=== PATIENT | male | born 1990 | race African-American/Black ===

== ENCOUNTER 2023-08-19 15:29 | Emergency (ER) | payer OTHER ==
[~2023-08-19] VITALS: Ht 175.3 cm; Wt 88.6 kg
[2023-08-19 15:50] VITALS: TEMP 98.3
[2023-08-19 16:46] LABS: INFLUENZA A-RTPCR,COMBO NEGATIVE (NEGATIVE); INFLUENZA B-RTPCR,COMBO NEGATIVE (NEGATIVE); RESPIRATORY SYNCYTIAL VRS-PCR NEGATIVE (NEGATIVE); SARS COVID19 RTPCR, COMBO NEGATIVE (NEGATIVE)
[2023-08-19] MEDS: KETOROLAC TROMETHAMINE 30 MG/ML VIAL IVP ONE (17:05)
[2023-08-19] MEDS: SODIUM CHLORIDE 0.9% 1,000 ML IV ONE (17:05)
[2023-08-19] MEDS: DEXAMETHASONE SOD PHOS 4 MG/ML 5 ML VIAL IVP ONE (17:05)
[2023-08-19] MEDS: ACETAMINOPHEN 1000 MG/ISO-OSM 100 ML IV ONE (17:06)
[2023-08-19 17:22] LABS: BASOPHILS % (AUTO) 0.6 % (0.0-2.0); EOSINOPHILS % (AUTO) 1.4 % (1.0-6.0); HEMOGLOBIN 14.5 g/dL (13.5-17.5); LYMPHOCYTES # (AUTO) 1.6 K/uL (1.0-4.8); LYMPHOCYTES % (AUTO) 18.2 % (22.0-44.0); MEAN CORPUSCULAR HEMOGLOBIN 30.8 pg (26.0-34.0); MEAN CORPUSCULAR HGB CONC 33.7 G/dL (31.0-37.0); MEAN CORPUSCULAR VOLUME 91 fL (80-100); MONOCYTES # (AUTO) 1.4 K/uL (0.1-1.0); MONOCYTES % (AUTO) 15.9 % (2.0-9.0); NEUTROPHILS # (AUTO) 5.7 K/uL (1.8-7.7); NEUTROPHILS % (AUTO) 63.9 % (40.0-70.0); PLATELET COUNT (AUTO) 424 K/uL (150-450); RED BLOOD CELL COUNT(AUTO) 4.71 MIL/uL (4.50-5.90); RED CELL DISTRIBUTION WIDTH 13.2 % (11.5-14.5)
[2023-08-19 17:36] LABS: ANION GAP 13 mmol/L (8-16); CALCIUM, TOTAL 10.6 mg/dL (8.8-10.5); CARBON DIOXIDE 28 mmol/L (22-29); CHLORIDE 97 mmol/L (98-107); CREATININE 0.89 mg/dL (0.60-1.30); GLOMERULAR FILTR. RATE CALC > 60 mL/min (>60); GLUCOSE,RANDOM 110 mg/dL (70-110); POTASSIUM 3.4 mmol/L (3.5-5.1); SODIUM SERUM 138 mmol/L (136-145); UREA NITROGEN, BLOOD 10 mg/dL (7-18)
[2023-08-19 17:41] LABS: ALANINE AMINOTRANSFERASE 33 U/L (12-78); ALBUMIN 3.9 g/dL (3.4-5.0); ALKALINE PHOSPHATASE 69 U/L (46-116); ASPARTATE AMINOTRANSFERASE 23 U/L (15-37); BILIRUBIN,TOTAL 0.6 mg/dL (0.1-1.0); TOTAL PROTEIN, SERUM 9.5 g/dL (6.4-8.2)
[2023-08-19] MEDS ORDERED: AMOX1TAB16 PO (18:58)
[2023-08-19] MEDS ORDERED: IBUP-1492 PO (18:59)
[2023-08-19] MEDS: CefTRIAXone 1 GM/DEXTROSE 50 ML IV ONE (19:03)
[2023-08-19 19:42] VITALS: BP 122/79; PULSE 81; RESP 16
== END 2023-08-19 19:46 | disposition home or self-care (01) ==
LOC: EMS 15:35
DX: J02.9 Acute pharyngitis, unspecified (principal); F12.90 Cannabis use, unspecified, uncomplicated; Z20.822 Contact with and (suspected) exposure to COVID-19
CPT/HCPCS: 99285; 96365; 0241U; 70490; 96375; 96366; 80053; 85025; 86308; 87430; 36415; J0696; J1100; J1885; J7030; J0131

== ENCOUNTER 2023-09-09 14:39 | Emergency (ER) | payer OTHER ==
[~2023-09-09] VITALS: Ht 175.3 cm; Wt 90.9 kg
[~2023-09-09 14:39] MED LIST: AMOX1TAB16 PO; IBUP-1492 PO
[2023-09-09 16:01] LABS: BASOPHILS % (AUTO) 0.3 % (0.0-2.0); EOSINOPHILS % (AUTO) 5.4 % (1.0-6.0); HEMATOCRIT 38.3 % (41-53); LYMPHOCYTES # (AUTO) 1.7 K/uL (1.0-4.8); LYMPHOCYTES % (AUTO) 48.3 % (22.0-44.0); MEAN CORPUSCULAR HEMOGLOBIN 31.2 pg (26.0-34.0); MEAN CORPUSCULAR HGB CONC 33.9 G/dL (31.0-37.0); MEAN CORPUSCULAR VOLUME 92 fL (80-100); MONOCYTES # (AUTO) 0.4 K/uL (0.1-1.0); MONOCYTES % (AUTO) 10.4 % (2.0-9.0); NEUTROPHILS # (AUTO) 1.3 K/uL (1.8-7.7); NEUTROPHILS % (AUTO) 35.6 % (40.0-70.0); PLATELET COUNT (AUTO) 348 K/uL (150-450); RED BLOOD CELL COUNT(AUTO) 4.16 MIL/uL (4.50-5.90); RED CELL DISTRIBUTION WIDTH 14.1 % (11.5-14.5); WHITE BLOOD COUNT (AUTO) 3.6 K/uL (4.5-11.0)
[2023-09-09 16:09] LABS: ANION GAP 5 mmol/L (8-16); CALCIUM, TOTAL 9.6 mg/dL (8.8-10.5); CARBON DIOXIDE 29 mmol/L (22-29); CHLORIDE 103 mmol/L (98-107); CREATININE 0.97 mg/dL (0.60-1.30); GLOMERULAR FILTR. RATE CALC > 60 mL/min (>60); GLUCOSE,RANDOM 94 mg/dL (70-110); POTASSIUM 3.8 mmol/L (3.5-5.1); SODIUM SERUM 137 mmol/L (136-145); UREA NITROGEN, BLOOD 9 mg/dL (7-18)
[2023-09-09 16:15] LABS: ALANINE AMINOTRANSFERASE 37 U/L (12-78); ALBUMIN 3.8 g/dL (3.4-5.0); ALKALINE PHOSPHATASE 45 U/L (46-116); ASPARTATE AMINOTRANSFERASE 26 U/L (15-37); BILIRUBIN,TOTAL 0.2 mg/dL (0.1-1.0); TOTAL PROTEIN, SERUM 7.8 g/dL (6.4-8.2)
[2023-09-09 18:17] VITALS: BP 124/55; PULSE 68; RESP 18; TEMP 98.2
[2023-09-09 20:03] LABS: APPEARANCE,URINE CLEAR (CLEAR); BILIRUBIN,URINE NEGATIVE (NEGATIVE); COLOR,URINE LIGHT YELLOW (YELLOW); GLUCOSE, URINE (UA) NEGATIVE (NEGATIVE); KETONES,URINE NEGATIVE (NEGATIVE); LEUKOCYTE ESTERASE ,URINE NEGATIVE (NEGATIVE); NITRATE,URINE NEGATIVE (NEGATIVE); OCCULT BLOOD,URINE NEGATIVE (NEGATIVE); PROTEIN,URINE NEGATIVE (NEGATIVE); SPECIFIC GRAVITIY, URINE 1.014 (1.003-1.030); UROBILINOGEN,URINE <=1.0 mg/dL (<=1.0)
[2023-09-09 20:13] LABS: COVID AG,FIA SOURCE NASAL SWAB
[2023-09-09] MEDS: SODIUM CHLORIDE 0.9% 1,000 ML IV ONE (20:16)
[2023-09-09] MEDS: ONDANSETRON HCL 4 MG/2 ML VIAL IVP ONE (20:16)
[2023-09-09 20:39] LABS: SARS-COV2 (COVID) ANTIGEN,FIA Negative (Negative)
[2023-09-09] MEDS ORDERED: ONDA-104 PO (21:22)
== END 2023-09-09 21:30 | disposition home or self-care (01) ==
LOC: EMS 15:16
DX: E86.0 Dehydration (principal); R11.2 Nausea with vomiting, unspecified; F12.90 Cannabis use, unspecified, uncomplicated; Z88.8 Allergy status to other drugs, medicaments and biological substances; Z20.822 Contact with and (suspected) exposure to COVID-19
CPT/HCPCS: 99284; 96374; 96361; 87426; 80053; 81003; 85025; 36415; 93005; J2405; J7030

== ENCOUNTER 2023-12-21 13:28 | Emergency (ER) | payer OTHER ==
[~2023-12-21] VITALS: Ht 175.3 cm; Wt 81.8 kg
[~2023-12-21 13:28] MED LIST changes: -AMOX1TAB16 PO; -IBUP-1492 PO; +ONDA-104 PO
[2023-12-21 13:35] VITALS: BP 138/77; PULSE 108; RESP 18; TEMP 98.6
[2023-12-21] MEDS ORDERED: CEPH-558 PO (14:38)
[2023-12-21] MEDS ORDERED: ONDA-104 PO (14:38)
[2023-12-21] MEDS ORDERED: HYDR-4062 PO (14:38)
[2023-12-21] MEDS ORDERED: IBUP-1554 PO (14:38)
[2023-12-21] MEDS: CefTRIAXone SODIUM 1 GM/VIAL IM ONE (15:01)
[2023-12-21] MEDS: ONDANSETRON HCL 4 MG TABLET PO ONE (15:01)
[2023-12-21] MEDS: LIDOCAINE/PF 1% 2 ML VIAL IM ONE (15:01)
[2023-12-21] MEDS: HYDROCODONE/ACETAMINOPHEN 5-325 MG TABLET PO ONE (15:01)
[2023-12-21] MEDS: LIDOCAINE 2% VISCOUS 15 ML SOLUTION UDCUP PO ONE (15:02)
== END 2023-12-21 15:23 | disposition home or self-care (01) ==
LOC: EMS 13:28
DX: J02.9 Acute pharyngitis, unspecified (principal); R09.81 Nasal congestion; R11.0 Nausea; F12.90 Cannabis use, unspecified, uncomplicated; Z88.8 Allergy status to other drugs, medicaments and biological substances
CPT/HCPCS: 99284; 87430; 96372; J0696; J3490; Q0162